=== PATIENT | female | born 1985 | race Caucasian/White ===

== ENCOUNTER 2023-08-25 12:33 | Emergency (ER) | payer OTHER, SELFPAY ==
[2023-08-25 12:41] VITALS: BP 178/97; PULSE 73; RESP 18; TEMP 36.7; O2SAT 97; BMI 48.6
--- NOTE | 2023-08-25 13:05 | ED.UPPEXIN1 ---
HPI - Extremity Injury (Upper) General Chief Complaint: Extremity Injury, Upper Stated Complaint: RIGHT ARM PAIN, TRAUMATIC Time Seen by Provider: 08/25/23 13:05 Source: patient Mode of arrival: walk-in History of Present Illness HPI narrative: patient's here complaint continued pain in her right shoulder. Three days ago while trying to get into a vehicle she stumbled when shoulder 1st into the door jam of the car itself. She did not have any pain in her neck that has continued pain at the distal clavicle and right shoulder. She's not had previous orthopedic injuries in these areas. She does not have tingling numbness paresis or paresthesias. Does not have any other symptoms such as headache or change in mentation. She has no pain in her chest. No numbness or weakness into the right upper extremity. Related Data Allergies Allergy/AdvReac Type Severity Reaction Status Date / Time amoxicillin AdvReac Unknown Verified 08/25/23 12:44 Exam Narrative Exam Narrative: patient's awake alert oriented ?3 normal cognition and normal GCS. On focused examination as below The right shoulder does not show any obvious deformity. The medial and midsection the clavicle have no tenderness but there is slight discomfort near the before meals joint of the right clavicle. Neurological function of the upper extremity including motor and sensory examination is completely normal. She has minimal discomfort with cervical range of motion but some restriction when rotation to the left only. No neurological symptoms associated with that. Breast examination is normal. I believe this is more than likely a sprain or contusion. X-rays will be done. Constitutional Vital Signs, click to edit/add: Last Vital Signs Temp 98.1 F 08/25/23 12:41 Pulse 73 08/25/23 12:41 Resp 18 08/25/23 12:41 BP 156/90 H 08/25/23 13:12 Pulse Ox 97 08/25/23 12:41 O2 Del Method Room Air 08/25/23 12:41 Course Vital Signs Vital signs: Vital Signs Temperature 98.1 F 08/25/23 12:41 Pulse Rate 73 08/25/23 12:41 Respiratory Rate 18 08/25/23 12:41 Blood Pressure 178/97 H 08/25/23 12:41 Pulse Oximetry 97 08/25/23 12:41 Oxygen Delivery Method Room Air 08/25/23 12:41 Temperature 98.1 F 08/25/23 12:41 Pulse Rate 73 08/25/23 12:41 Respiratory Rate 18 08/25/23 12:41 Blood Pressure 156/90 H 08/25/23 13:12 Pulse Oximetry 97 08/25/23 12:41 Oxygen Delivery Method Room Air 08/25/23 12:41 MDM - Extremity Injury (Upper) MDM Narrative Medical decision making narrative: x-rays were reviewed by myself did not show any obvious abnormality. I believe her most likely clinical diagnosis is contusion and before meals strain right shoulder Discharge Plan Discharge Chief Complaint: Extremity Injury, Upper Clinical Impression: Contusion of right shoulder Patient Disposition: Home, Self-Care Time of Disposition Decision: 14:07 Additional Instructions: wears sling 2-3 days/[id number] NSAIDs/follow-up with primary care doctor to consider physical therapy if not demonstrating gradual improvement Stand Alone Forms: Portal Instructions Referrals: Physician,Non-Staff, MD [Primary Care Provider] - 1 week
--- NOTE | 2023-08-25 13:10 | XR_ITS ---
The [address] [address] Patient Name: DHAVAL MARINA MRN: [id number] date: 1985 Sex: F Assigned Patient Location: ER Current Patient Location: ED.MAIN Accession/Order Number: [id number] Exam Date: 08/25/2023 13:15 Report Date: 08/25/2023 14:09 At the request of: SREE CHANDLER Procedure: XR shoulder RT min 2V HISTORY: Right shoulder pain after tripping and falling into a door frame and hitting the shoulder 2 days ago. Limited range of motion. XR shoulder RT min 2V: 08/25/2023 1:15 PM EDT COMPARISON: None. FINDINGS: 3 views of the right shoulder were obtained. No fracture or joint space narrowing is seen. On the scapular Y view there appears to be possible mild posterior subluxation of the humeral head in relation to the glenoid. XR/XR shoulder RT min 2V IMPRESSION: 1. There appears to be possible mild posterior subluxation of the humeral head in relation to the glenoid, but this may be positional in nature. An axillary view of the right shoulder is recommended for further evaluation. 2. No fracture is seen. Electronically authenticated by: DINORAH BUNN Date: 08/25/2023 14:09
--- NOTE | 2023-08-25 13:11 | PC.NURSE ---
Right shoulder pain, no redness, swelling or warmth noted to area.; reports pain to shoulder and neck area with movement
[2023-08-25 13:12] VITALS: BP 156/90
== END 2023-08-25 14:19 | disposition home or self-care (01) ==
PROVIDERS: Emergency Provider Emergency Medicine Emergency Medical Services
DX: S40.011A Contusion of right shoulder, initial encounter (principal); W22.8XXA Striking against or struck by other objects, initial encounter
CPT/HCPCS: 73030; 99283